=== PATIENT | male | born 1950 | race Caucasian/White ===

== ENCOUNTER 2020-09-02 12:18 | Day surgery (SDC) | payer MEDICARE, OTHER ==
[~2020-09-02] VITALS: Ht 180.3 cm; Wt 92.6 kg
[~2020-09-02 12:18] MED LIST: NONE PER PT; OXYC1TAB8 PO
[2020-09-02] MEDS ORDERED: CHLORHEXIDINE 15 ML UDC PO ONE (13:00)
[2020-09-02 13:07] VITALS: BP 128/88
[2020-09-02 13:20] LABS: MICROSCOPIC INDICATED
[2020-09-02] MEDS ORDERED: ALLO300T PO (13:20)
[2020-09-02] MEDS ORDERED: MAGN61TA PO (13:20)
[2020-09-02] MEDS ORDERED: POTA99TA24 PO (13:20)
[2020-09-02] MEDS ORDERED: BENF150C PO (13:20)
[2020-09-02] MEDS ORDERED: CYAN250013 PO (13:20)
[2020-09-02] MEDS ORDERED: MILK500C PO (13:20)
[2020-09-02] MEDS: LACTATED RINGERS 1,000 ML IV SCH ×2 (13:35→13:36)
[2020-09-02 13:42] LABS: BASOPHILS % (AUTO) 1 % (0-1); EOSINOPHILS % (AUTO) 2 % (1-7); LYMPHOCYTES % (AUTO) 23 % (22-44); MEAN CORPUSCULAR HEMOGLOBIN 33.5 pg (27.5-34.5); MEAN PLATELET VOLUME 7.6 fL (7.4-10.4); MONOCYTES % (AUTO) 7 % (2-9); NEUTROPHILS % (AUTO) 66 % (42-75); PLATELET COUNT 240 x10^3/uL (130-400); RED BLOOD COUNT 4.81 x10^6/uL (4.38-5.82)
[2020-09-02 13:51] LABS: ANION GAP 5 mmol/L (5-15); CALCIUM 10.1 mg/dL (8.5-10.1); CHLORIDE 111 mmol/L (98-107); CREATININE 1.35 mg/dL (0.7-1.3); INTERNATIONAL NORMALIZED RATIO 1.02 (0.93-1.1); PROTHROMBIN TIME 10.9 Seconds (9.6-11.5)
[2020-09-02] MEDS ORDERED: OMNIPAQUE 350 MG/ML, 50 ML BOTTLE ONE (14:18)
[2020-09-02] MEDS ORDERED: FENTANYL PF 100 MCG/2ML ONE ×2 (15:37→16:16)
[2020-09-02] MEDS ORDERED: GENTAMICIN 80 MG/2 ML ONE (15:40)
[2020-09-02] MEDS ORDERED: PROPOFOL 10 MG/ML, 20ML ONE (17:20)
[2020-09-02] MEDS ORDERED: ONDANSETRON 2MG/ML, 2ML ONE (17:20)
[2020-09-02] MEDS ORDERED: DEXAMETHASONE 4 MG/ML, 1ML ONE (17:20)
[2020-09-02] MEDS ORDERED: CEFAZOLIN 1,000 MG ONE (17:20)
[2020-09-02] MEDS ORDERED: HYDROmorphone 1 MG/ML, 1ML INJ IVPush PRN (18:00)
[2020-09-02] MEDS ORDERED: PROMETHAZINE 25 MG/ML, 1ML IVPush PRN (18:00)
[2020-09-02] MEDS ORDERED: HALOPERIDOL 5 MG/ML IV PRN (18:00)
[2020-09-02] MEDS ORDERED: FENTANYL PF 100 MCG/2ML IV PRN (18:00)
[2020-09-02] MEDS ORDERED: OXYcodone 5 MG/5 ML ORAL.SOL UDC PO PRN (18:00)
[2020-09-02] MEDS ORDERED: LABETALOL 5MG/ML, 20ML IV PRN (18:00)
[2020-09-02] MEDS ORDERED: ACETAMINOPHEN 325 MG TABLET PO PRN (18:00)
[2020-09-02] MEDS ORDERED: DIPHENHYDRAMINE 50 MG/ML, 1ML IVPush PRN (18:00)
[2020-09-02] MEDS ORDERED: hydrALAzine 20 MG/ML, 1ML IV PRN (18:00)
[2020-09-02] MEDS ORDERED: MEPERIDINE/PF 25MG/0.5ML IVPush PRN (18:00)
== END 2020-09-02 19:25 | disposition home or self-care (01) ==
LOC: OUT 12:18
PROVIDERS: ATTEND Urology
DX: Z46.6 Encounter for fitting and adjustment of urinary device (principal); N20.0 Calculus of kidney; G47.33 Obstructive sleep apnea (adult) (pediatric); Z20.822 Contact with and (suspected) exposure to COVID-19; Z79.01 Long term (current) use of anticoagulants; Z79.899 Other long term (current) drug therapy; Z85.46 Personal history of malignant neoplasm of prostate; Z87.440 Personal history of urinary (tract) infections; Z87.442 Personal history of urinary calculi; Z87.891 Personal history of nicotine dependence; Z90.79 Acquired absence of other genital organ(s); Z84.1 Family history of disorders of kidney and ureter
CPT/HCPCS: 36415; 52356; 74018; 74420; 80048; 81001; 82360; 85025; 85610; 87077; 87086; 87186; 87635; 88300; 93005; C1758; C1769; C2617; J0690; J1100; J1580; J2405; J2704; J3010; J7120; Q9967; 76000